=== PATIENT | male | born 1960 | race Caucasian/White ===

== ENCOUNTER 2022-03-27 12:49 | Emergency (ER) | payer BC ==
[2022-03-27] MEDS ORDERED: Ketorolac 30 MG/ML SDV IM ONE (15:37)
== END 2022-03-27 17:17 | disposition home or self-care (01) ==
LOC: JP.ED 12:49
DX: N20.0 Calculus of kidney (principal)
CPT/HCPCS: 74176; 96372; 99284; J1885; 99282